=== PATIENT | male | born 1940 | race Caucasian/White ===

== ENCOUNTER 2017-10-18 17:40 | Emergency (ER) | payer MEDICARE, OTHER ==
[~2017-10-18] VITALS: Ht 180.3 cm; Wt 71.4 kg
[2017-10-18] MEDS ORDERED: SODIUM CHLORIDE 0.9% 1,000ML IVBOLUS ONE (18:30)
[2017-10-18] MEDS ORDERED: SODIUM CHLORIDE FLUSH 10ML SYR IVF ONE (18:30)
[2017-10-18] MEDS ORDERED: LISI-170 PO (18:38)
[2017-10-18] MEDS ORDERED: LEVO50TA5 PO (18:38)
[2017-10-18] MEDS ORDERED: SIMV10TA3 PO (18:38)
[2017-10-18] MEDS ORDERED: METF500T4 PO (18:38)
[2017-10-18 18:41] LABS: PH, VENOUS 7.399 pH (7.320-7.420)
[2017-10-18 18:46] LABS: BASOPHILS # (AUTO) 0.02 x10^3/uL (0-0.1); BASOPHILS % (AUTO) 0 % (0-1); EOSINOPHILS # (AUTO) 0.19 x10^3/uL (0-0.4); EOSINOPHILS % (AUTO) 3 % (1-7); LYMPHOCYTES # (AUTO) 1.26 x10^3/uL (1-3.4); LYMPHOCYTES % (AUTO) 21 % (22-44); MD NO; MEAN CORPUSCULAR HEMOGLOBIN 30.5 pg (27.5-34.5); MEAN CORPUSCULAR HGB CONC 34.2 g/dL (33.2-36.2); MEAN CORPUSCULAR VOLUME 89.1 fL (81-97); MEAN PLATELET VOLUME 8.3 fL (7.4-10.4); MONOCYTES # (AUTO) 0.37 x10^3/uL (0.2-0.8); MONOCYTES % (AUTO) 6 % (2-9); NEUTROPHILS # (AUTO) 4.27 x10^3/uL (1.8-6.8); NEUTROPHILS % (AUTO) 70 % (42-75); PLATELET COUNT 171 x10^3/uL (130-400); RED BLOOD COUNT 4.97 x10^6/uL (4.38-5.82); RED CELL DISTRIBUTION WIDTH 14.1 % (9.4-14.8)
[2017-10-18 18:48] LABS: MICROSCOPIC NOT IND
[2017-10-18 18:52] LABS: CULTURE INDICATED? NO
[2017-10-18 18:56] LABS: ALBUMIN 3.8 g/dL (3.4-5.0); ANION GAP 10 mmol/L (5-15); CALCIUM 9.1 mg/dL (8.5-10.1); CHLORIDE 103 mmol/L (98-107)
[2017-10-18 18:58] LABS: CREATININE 1.08 mg/dL (0.7-1.3)
[2017-10-18 18:59] LABS: ACETONE, SERUM Moderate(40mg/dL) mg/dL (Negative)
[2017-10-18] MEDS ORDERED: INSULIN REGULAR 100 UNITS/ML, 3ML VIAL ONE (19:29)
[2017-10-18] MEDS ORDERED: INSULIN REGULAR 100 UNITS/ML, 3ML VIAL SQ-INSULIN ONE (19:30)
[2017-10-18 20:23] VITALS: BP 130/69
== END 2017-10-18 20:26 | disposition home or self-care (01) ==
LOC: ED 20:05
DX: E11.65 Type 2 diabetes mellitus with hyperglycemia (principal)
CPT/HCPCS: 36415; 80048; 81003; 82010; 82040; 82803; 82962; 85025; 96360; 96372; 99284; J7030

== ENCOUNTER → 2020-06-24 | Outpatient (CLI) | payer MEDICARE, OTHER ==
[~2020-06-24] MED LIST: DULA1.5P INJ; INSU100I32 SQ; LEVO50TA5 PO; LISI-170 PO; METF500T17 PO; OXYB5TAB10 PO; PIOG30TA68 PO; SIMV10TA18 PO
[2020-06-24 15:00] LABS: ALANINE AMINOTRANSFERASE 26 U/L (12-78); ALBUMIN 3.4 g/dL (3.4-5.0); ANION GAP 6 mmol/L (5-15); CHLORIDE 109 mmol/L (98-107); CREATININE 1.07 mg/dL (0.7-1.3)
[2020-06-24 15:02] LABS: ALKALINE PHOSPHATASE 74 U/L (45-117); BILIRUBIN,TOTAL 0.4 mg/dL (0.2-1.0); TOTAL PROTEIN 6.6 g/dL (6.4-8.2)
== END | disposition home or self-care (01) ==
LOC: STAR 13:47
PROVIDERS: ATTEND Orthopaedic Surgery
DX: Z01.818 Encounter for other preprocedural examination (principal); S82.034A Nondisplaced transverse fracture of right patella, initial encounter for closed fracture; R00.8 Other abnormalities of heart beat; X58.XXXA Exposure to other specified factors, initial encounter; Y93.89 Activity, other specified; Y92.89 Other specified places as the place of occurrence of the external cause; Y99.8 Other external cause status; Z20.828 Contact with and (suspected) exposure to other viral communicable diseases
CPT/HCPCS: 80053; 87635; 93005

== ENCOUNTER 2020-06-28 07:20 | Day surgery (SDC) | payer MEDICARE, OTHER ==
[~2020-06-28] VITALS: Ht 180.3 cm; Wt 75.0 kg
[2020-06-28] MEDS ORDERED: CHLORHEXIDINE 15 ML UDC MM STA (07:27)
[2020-06-28] MEDS ORDERED: LACTATED RINGERS 1,000 ML IV SCH (07:30)
[2020-06-28 07:44] VITALS: BP 119/70
[2020-06-28] MEDS ORDERED: FENTANYL PF 100 MCG/2ML ONE ×2 (08:54→10:51)
[2020-06-28] MEDS ORDERED: MIDAZOLAM 1 MG/ML, 2ML ONE (08:54)
[2020-06-28] MEDS ORDERED: LORazepam 2 MG/ML, 1ML IVPush PRN (09:30)
[2020-06-28] MEDS ORDERED: HYDROmorphone 1 MG/ML, 1ML INJ IVPush PRN (09:30)
[2020-06-28] MEDS ORDERED: OXYcodone 5 MG/5 ML ORAL.SOL UDC PO PRN (09:30)
[2020-06-28] MEDS ORDERED: ACETAMINOPHEN 325 MG TABLET PO PRN (09:30)
[2020-06-28] MEDS ORDERED: LABETALOL 5MG/ML, 20ML IV PRN (09:30)
[2020-06-28] MEDS ORDERED: PROMETHAZINE 25 MG/ML, 1ML IVPush PRN (09:30)
[2020-06-28] MEDS ORDERED: DEXAMETHASONE 4 MG/ML, 1ML ONE (09:34)
[2020-06-28] MEDS ORDERED: LIDOCAINE-MPF 2% ,5ML ONE (10:10)
[2020-06-28] MEDS ORDERED: CEFAZOLIN 1,000 MG ONE (10:10)
[2020-06-28] MEDS ORDERED: PROPOFOL 10 MG/ML, 20ML ONE (10:10)
[2020-06-28] MEDS ORDERED: ONDANSETRON 2MG/ML, 2ML ONE (10:10)
[2020-06-28] MEDS: FENTANYL PF 100 MCG/2ML IV PRN ×2 (10:53→10:59)
[2020-06-28] MEDS ORDERED: ACETAMINOPHEN 650 MG/20.3 ML UDC ONE (10:56)
[2020-06-28] MEDS ORDERED: OXYcodone 5 MG/5 ML ORAL.SOL UDC ONE (10:56)
[2020-06-28] MEDS ORDERED: MEPERIDINE/PF 25MG/ML,1ML ONE (11:07)
[2020-06-28] MEDS ORDERED: MEPERIDINE/PF 25MG/0.5ML IVPush PRN (11:30)
== END 2020-06-28 13:30 | disposition home or self-care (01) ==
LOC: OUT 07:20
PROVIDERS: ATTEND Orthopaedic Surgery
DX: S82.034A Nondisplaced transverse fracture of right patella, initial encounter for closed fracture (principal); G89.18 Other acute postprocedural pain; E11.9 Type 2 diabetes mellitus without complications; E78.5 Hyperlipidemia, unspecified; I10 Essential (primary) hypertension; J44.9 Chronic obstructive pulmonary disease, unspecified; Z79.890 Hormone replacement therapy; Z79.899 Other long term (current) drug therapy; Z85.46 Personal history of malignant neoplasm of prostate; Z87.891 Personal history of nicotine dependence; W18.39XA Other fall on same level, initial encounter; Y93.89 Activity, other specified; Y92.89 Other specified places as the place of occurrence of the external cause; Y99.8 Other external cause status
CPT/HCPCS: 27524; 64447; 82962; J0690; J1100; J2175; J2250; J2405; J2704; J3010